=== PATIENT | male | born 1970 | race Caucasian/White ===

== ENCOUNTER 2019-09-01 21:33 | Emergency (ER) | payer MEDICAID ==
[~2019-09-01] VITALS: Ht 177.8 cm; Wt 108.9 kg
[2019-09-01 21:43] VITALS: Ht 177.8 cm; Wt 108.9 kg
[2019-09-02 06:38] VITALS: BP 111/69
== END 2019-09-02 06:38 | disposition home or self-care (01) ==
LOC: ED 21:33
DX: S20.222A Contusion of left back wall of thorax, initial encounter (principal); Y04.8XXA Assault by other bodily force, initial encounter; Y93.89 Activity, other specified; Y92.89 Other specified places as the place of occurrence of the external cause; Y99.8 Other external cause status
CPT/HCPCS: J1885; J2270; Q0092